=== PATIENT | female | born 1945 | race Two or more races ===

== ENCOUNTER 2018-01-13 10:46 | Outpatient (CLI) | payer MEDICARE, MEDICAID ==
[2018-01-14] MEDS ORDERED: oxyCODONE/APAP (5/325 MG) 1 UDTAB TABLET ONE (00:40)
[2018-01-14] MEDS ORDERED: CYCLOBENZAPRINE 10 MG TABLET ONE (00:40)
[2018-01-14] MEDS ORDERED: ONDANSETRON 4 MG TAB.RAPDIS ONE (00:41)
== END 2018-01-13 23:59 | disposition home or self-care (01) ==
LOC: LAB 10:46
PROVIDERS: ATTEND Internal Medicine Cardiovascular Disease
DX: I82.409 Acute embolism and thrombosis of unspecified deep veins of unspecified lower extremity (principal)
CPT/HCPCS: 36415; 85378-TC; Q0162

== ENCOUNTER 2020-12-08 07:32 | Emergency (ER) | payer OTHER, MEDICAID ==
[~2020-12-08] VITALS: Ht 160 cm; Wt 65.3 kg
--- NOTE | 2020-12-08 07:50 | NUR ---
The patient is BIBA RA860 From Home "Abdominal Pain/nausea and vomiting". The patient rates pain 4/10. No vomiting noted at this time. Abdomen soft and non-distended. Will continue to monitor the patient.
[2020-12-08] MEDS ORDERED: ONDANSETRON HCL/PF 4 MG/2 ML VIAL ONE (07:56)
[2020-12-08 07:59] LABS: BASOPHILS # (AUTO) 0.1 K/uL (0.0-0.2); BASOPHILS % (AUTO) 0.4 % (0.0-2.0); HEMATOCRIT 41 % (33-45); HEMOGLOBIN 13.7 g/dL (11.5-14.8); LYMPHOCYTES # (AUTO) 1.1 K/uL (0.8-4.8); LYMPHOCYTES % (AUTO) 7.6 % (20.0-44.0); MEAN CORPUSCULAR HGB CONC 34 g/dl (31.0-36.0); MEAN CORPUSCULAR VOLUME 84 fL (82-100); MONOCYTES # (AUTO) 0.5 K/uL (0.1-1.30); MONOCYTES % (AUTO) 3.4 % (2.0-12.0); NEUTROPHILS # (AUTO) 12.5 K/uL (1.8-8.9); NEUTROPHILS % (AUTO) 88.6 % (43.0-81.0); PLATELET COUNT (AUTO) 453 K/uL (150-450); RED BLOOD CELL COUNT(AUTO) 4.83 MIL/uL (4.0-5.2); WHITE BLOOD COUNT (AUTO) 14.1 K/uL (4.3-11.0)
[2020-12-08] MEDS: ONDANSETRON HCL/PF 4 MG/2 ML VIAL IVP ONE (08:06)
[2020-12-08] MEDS: IV NS 0.9% 1,000 ML BAG IV ONE (08:07)
[2020-12-08 08:09] LABS: CALCIUM, SERUM 9.2 mg/dL (8.5-10.1); CREATININE 0.9 mg/dL (0.6-1.3); POTASSIUM 3.2 mmol/L (3.5-5.1)
--- NOTE | 2020-12-08 08:09 | NUR ---
URINE COLLECTED AND SENT TO THE LAB
[2020-12-08 08:15] LABS: ALBUMIN 4.5 g/dL (3.4-5.0); BILIRUBIN,DIRECT 0.1 mg/dL (0.0-0.2); BILIRUBIN,TOTAL 0.6 mg/dL (0.2-1.0); TOTAL PROTEIN, SERUM 8.2 g/dL (6.4-8.2)
--- NOTE | 2020-12-08 08:17 | NUR ---
DR BAY IS AWARE OF THE PATIENT`S BP OF 219/100 AND HR 78. STATED SHE WILL ENTER ORDER.
[2020-12-08 08:27] LABS: BILIRUBIN,URINE Negative (NEGATIVE); COLOR,URINE YELLOW (YELLOW); LEUKOCYTE ESTERASE ,URINE Negative (NEGATIVE); NITRITE, URINE Negative (NEGATIVE); PH,URINE 8.5 (5.0-8.0); PROTEIN,URINE Trace mg/dl (NEGATIVE); UGLUCOSE 100 MG/DL mg/dL (NEGATIVE); UROBILINOGEN,URINE 0.2 EU/dL (0.2)
[2020-12-08 08:32] LABS: BACTERIA,URINE Few /HPF (None Seen); SQUAMOUS EPITHELIAL CELL,UR Few /HPF (None Seen); WBC,URINE 0-2 /HPF (0-3)
--- NOTE | 2020-12-08 08:47 | NUR ---
Covid swab sent to LAB To CT scan per w/c
[2020-12-08] MEDS ORDERED: IV NS 0.9% 250 ML IV ONE (08:54)
[2020-12-08] MEDS ORDERED: IOHEXOL-300 100 ML VIAL IV ONE (08:54)
[2020-12-08] MEDS ORDERED: CT SWABBABLE VALVE TRANS SET 1 EA INFUS.SET MC ONE (08:54)
--- NOTE | 2020-12-08 09:13 | NUR ---
The patient is back from CT in stable condition.
[2020-12-08] MEDS ORDERED: hydrALAZINE HCL IV 20 MG VIAL ONE (09:24)
[2020-12-08] MEDS: hydrALAZINE HCL IV 20 MG VIAL IV ONE ×2 (09:27→16:14)
[2020-12-08] MEDS ORDERED: AMLO-212 PO (09:45)
[2020-12-08] MEDS ORDERED: OMEP20CA15 PO (09:45)
[2020-12-08] MEDS ORDERED: ASPI-1420 PO (09:45)
[2020-12-08] MEDS ORDERED: APIX5TAB4 PO (09:45)
[2020-12-08] MEDS ORDERED: FERR325T24 PO (09:45)
[2020-12-08] MEDS ORDERED: LEVO50TA8 PO (09:45)
[2020-12-08] MEDS ORDERED: ATOR10TA PO (09:45)
--- NOTE | 2020-12-08 12:41 | NUR ---
RECEIVED A CALL FROM [facility] FROM ADMITTING, PT HAS BEEN ACCEPTED TO [facility]. CM FROM INSURANCE WILL CALL US WITH ACCEPTANCE INFO AND TRANSPORTATION ETA.
--- NOTE | 2020-12-08 13:15 | NUR ---
RECIEVED A CALL FROM CLIFFORD SNYDER CM WITH ACCEPTANCE INFO. PT ACCEPTED TO [facility] IN [place] ROOM 1707. NUMBER FOR REPORT [phone]. WILL CALL US BACK WITH AMBULANCE INFO.
--- NOTE | 2020-12-08 13:18 | NUR ---
CLIFFORD CALLED BACK WITH ETA [facility] WILL BE PICKING UP PATIENT AT 1500. ACCEPTING PHYSICIAN AT [facility] IS [facility].
--- NOTE | 2020-12-08 14:06 | NUR ---
THE PATIENT REFUSES NG TUBE INSERTION DESPITE EXPLAINING RISKS AND BENEFITS. DR BAY AWARE.
--- NOTE | 2020-12-08 15:14 | NUR ---
REPORT GIVEN TO NURSE COTA FROM [facility]
--- NOTE | 2020-12-08 16:15 | NUR ---
THE PATIENT IS TRANSFERED TO [facility] IN STABLE CONDITION VIA ARRANGED TRANSPO.
[2020-12-08 16:16] VITALS: BP 158/87
== END 2020-12-08 16:16 | disposition short-term general hospital (02) ==
LOC: ER 07:49
DX: K56.609 Unspecified intestinal obstruction, unspecified as to partial versus complete obstruction (principal); R11.2 Nausea with vomiting, unspecified; K52.9 Noninfective gastroenteritis and colitis, unspecified; I10 Essential (primary) hypertension; Z90.49 Acquired absence of other specified parts of digestive tract; Z85.038 Personal history of other malignant neoplasm of large intestine; E03.9 Hypothyroidism, unspecified; E78.5 Hyperlipidemia, unspecified; Z86.718 Personal history of other venous thrombosis and embolism; Z79.01 Long term (current) use of anticoagulants; Z86.711 Personal history of pulmonary embolism; Z79.890 Hormone replacement therapy; D47.3 Essential (hemorrhagic) thrombocythemia; Z85.3 Personal history of malignant neoplasm of breast; Z20.822 Contact with and (suspected) exposure to COVID-19
CPT/HCPCS: 36415; 74177; 80048; 80076; 81001; 83690; 85025; 87081; 87086; 87426; 96361; 96374; 96375; 99285; C9803; J0360; J2405; J7030; J7050; Q9967